=== PATIENT | female | born 1960 | race Caucasian/White ===

== ENCOUNTER 2025-06-26 09:33 | Outpatient (CLI) | payer MEDICARE | END 2025-06-26 09:34 | disposition home or self-care (01) | LOC: BICMAMMO 09:33 | PROVIDERS: ATTEND Internal Medicine | DX: Z12.31 Encounter for screening mammogram for malignant neoplasm of breast (principal) | CPT/HCPCS: 77063; 77067 ==

== ENCOUNTER 2025-06-26 12:41 | Outpatient (CLI) | payer MEDICARE | END 2025-06-26 12:42 | disposition home or self-care (01) | LOC: SCSBT 12:41 | PROVIDERS: ATTEND Internal Medicine | DX: Z78.0 Asymptomatic menopausal state (principal); M85.89 Other specified disorders of bone density and structure, multiple sites | CPT/HCPCS: 77080 ==